=== PATIENT | female | born 1995 | race Caucasian/White ===

== ENCOUNTER → 2020-09-16 | Outpatient (CLI) | payer BC ==
[~2020-09-16] MED LIST: ZOFRAN ODT4 MG PO
== END ==
LOC: COL.RAD 09:20
DX: R10.32 Left lower quadrant pain (principal)

== ENCOUNTER 2021-02-10 16:02 | Emergency (ER) | payer BC ==
[~2021-02-10] VITALS: Ht 162.6 cm; Wt 63.6 kg
[2021-02-10 16:33] VITALS: TEMP 97.8
[2021-02-10 16:39] LABS: COLLECTION METHOD CLEAN CATCH
[2021-02-10 16:44] LABS: MUCOUS Present /lpf; PH 5 (5-8); URINE APPEARANCE Clear; URINE BACTERIA None Seen /hpf; URINE BILIRUBIN Negative (NEGATIVE); URINE BLOOD 1+ (NEGATIVE); URINE COLOR Yellow; URINE GLUCOSE Negative (NEGATIVE); URINE KETONE Negative (NEGATIVE); URINE LEUKOCYTE ESTERASE Negative (NEGATIVE); URINE NITRATE Negative (NEGATIVE); URINE PROTEIN(semi-quant) Negative (NEGATIVE); URINE RBC 0-2 /hpf; URINE UROBILINOGEN Negative (NEGATIVE)
[2021-02-10 17:13] LABS: BASO % 0.4 % (0.0-2.0); EOS # 0.1 K/mm3 (0.0-0.7); EOS % 1.4 % (0-4.0); GRAN % 69.6 % (42.2-75.2); HEMOGLOBIN 14.6 g/dl (12.5-16.0); LYMPH % 17.5 % (20.0-51.0); MEAN CELL VOLUME 84 fl (80.0-100.0); MEAN CORPUSCULAR HEMOGLOBIN 29 pg (27.0-31.0); MEAN CORPUSCULAR HGB CONC 35 g/dl (33.0-37.0); MEAN PLATELET VOLUME 8.6 fl (7.4-10.4); MONO # 0.6 K/mm3 (0.1-0.6); MONO % 10.9 % (1.7-9.3); PLATELET COUNT 322 K/mm3 (130-400); RED BLOOD COUNT 4.99 M/mm3 (4.10-5.30); REDCELL DISTRIBUTION WIDTH-CV 12.2 % (11.5-14.5)
[2021-02-10 17:31] LABS: ALBUMIN 3.9 gm/dL (3.5-5.0); BILIRUBIN,TOTAL 0.3 mg/dL (0.2-1.2); C-REACTIVE PROTEIN 3.81 mg/dL (0.00-0.50); CALCIUM 9.5 mg/dL (8.4-10.2); CREATININE, serum 0.82 mg/dL (0.57-1.11); POTASSIUM 3.5 mmol/L (3.5-4.5); TOTAL PROTEIN 7.7 gm/dL (6.2-8.1)
[2021-02-10] MEDS ORDERED: ZOFRAN ODT4 MG PO (18:15)
[2021-02-10 18:33] VITALS: BP 119/79; PULSE 87
== END 2021-02-10 18:33 | disposition home or self-care (01) ==
LOC: COL.ER 16:02
PROVIDERS: Nurse Practitioner Primary Care
DX: A08.4 Viral intestinal infection, unspecified (principal); Z32.02 Encounter for pregnancy test, result negative
CPT/HCPCS: J7030